=== PATIENT | female | born 1995 | race African-American/Black ===

== ENCOUNTER 2016-11-05 10:17 | Emergency (ER) | payer OTHER ==
[~2016-11-05] VITALS: Ht 160 cm; Wt 48.5 kg
[2016-11-05 11:10] VITALS: BP 114/59
--- NOTE | 2016-11-05 11:40 | NUR ---
PATIENT TO BED 8 AT THIS TIME.
--- NOTE | 2016-11-05 11:40 | NUR ---
PATIENT PRESENTS TO ED FOR EVALUATION OF VAGINAL DISCHARGE X2 MONTHS. DENIES N/V/D; SKIN IS PINK/WARM/DRY; AAOX4 WITH EVEN AND STEADY GAIT; LUNGS CLEAR BL; HR EVEN AND REGULAR; PT DENIES ANY FEVER, CP, SOB, OR COUGH AT THIS TIME; PATIENT STATES PAIN OF 4/10 AT THIS TIME; VSS; PATIENT POSITIONED FOR COMFORT; HOB ELEVATED; BEDRAILS UP X2; BED DOWN. ER MD MADE AWARE OF PT STATUS.
--- NOTE | 2016-11-05 12:28 | NUR ---
DR ALONSO REEVALUATING AAO, COOPERATIVE PT AT BEDSIDE
[2016-11-05 12:35] VITALS: BP 123/77
--- NOTE | 2016-11-05 12:35 | NUR ---
Patient discharged with v/s stable. Written and verbal after care instructions given and explained. Patient alert, oriented and verbalized understanding of instructions. Ambulatory with steady gait. All questions addressed prior to discharge. ID band removed. Patient advised to follow up with PMD. Rx of FLUCONAZOLE given. Patient educated on indication of medication including possible reaction and side effects. Opportunity to ask questions provided and answered.
== END 2016-11-05 12:35 | disposition home or self-care (01) ==
LOC: MED 10:17
DX: B37.3 Candidiasis of vulva and vagina (principal)